=== PATIENT | female | born 1950 | race Caucasian/White ===

== ENCOUNTER → 2016-12-06 | Outpatient (CLI) | payer OTHER, MEDICARE | LOC: FIMAGING 16:09 | DX: Z12.31 Encounter for screening mammogram for malignant neoplasm of breast (principal); Z85.3 Personal history of malignant neoplasm of breast | CPT/HCPCS: G0202 ==

== ENCOUNTER → 2017-01-16 | Outpatient (CLI) | payer OTHER, MEDICARE | LOC: BMCIMAGING 10:46 | PROVIDERS: ATTEND Nurse Practitioner Adult Health | DX: N64.4 Mastodynia (principal) ==

== ENCOUNTER → 2017-07-11 | Outpatient (CLI) | payer OTHER, MEDICARE | LOC: BMCIMAGING 10:13 | DX: Z12.39 Encounter for other screening for malignant neoplasm of breast (principal); Z13.820 Encounter for screening for osteoporosis; N63.10 Unspecified lump in the right breast, unspecified quadrant; M85.89 Other specified disorders of bone density and structure, multiple sites ==

== ENCOUNTER → 2017-12-20 | Outpatient (CLI) | payer OTHER, MEDICARE | LOC: FIMAGING 09:21 | PROVIDERS: ATTEND Internal Medicine | DX: Z12.31 Encounter for screening mammogram for malignant neoplasm of breast (principal); Z80.3 Family history of malignant neoplasm of breast ==

== ENCOUNTER → 2018-01-24 | Outpatient (CLI) | payer OTHER, MEDICARE | LOC: FIMAGING 13:18 | PROVIDERS: ATTEND Nurse Practitioner Adult Health | DX: Z09 Encounter for follow-up examination after completed treatment for conditions other than malignant neoplasm (principal); N63.10 Unspecified lump in the right breast, unspecified quadrant ==

== ENCOUNTER → 2019-01-08 | Outpatient (CLI) | payer OTHER, MEDICARE | LOC: FIMAGING 13:24 | PROVIDERS: ATTEND Internal Medicine | DX: Z12.31 Encounter for screening mammogram for malignant neoplasm of breast (principal); Z80.3 Family history of malignant neoplasm of breast ==

== ENCOUNTER → 2019-01-15 | Outpatient (CLI) | payer OTHER, MEDICARE | LOC: BMCIMAGING 10:51 | PROVIDERS: ATTEND Internal Medicine | DX: N63.10 Unspecified lump in the right breast, unspecified quadrant (principal) ==

== ENCOUNTER → 2019-01-23 | Outpatient (CLI) | payer OTHER, MEDICARE | LOC: BMCIMAGING 18:54 ==